=== PATIENT | male | born 1955 | race American Indian/Alaskan Native ===

== ENCOUNTER 2020-06-13 11:13 | Emergency (ER) | payer SELFPAY ==
--- NOTE | 2020-06-13 12:31 | Emergency Department Report ---
Blank Doc - Documentation Documentation: 64-year-old male that presents with generlized body aches and weakness. This initial assessment/diagnostic orders/clinical plan/treatment(s) is/are subject to change based on patient's health status, clinical progression and re- assessment by fellow clinical providers in the ED. Further treatment and workup at subsequent clinical providers discretion. Patient/guardians urged not to elope from the ED as their condition may be serious if not clinically assessed and managed. Initial orders include: 1- Patient sent to MAIN ED for further evaluation and treatment 2- EKG 3- labs 4- UA
--- NOTE | 2020-06-13 13:21 | XRay Report ---
CHEST 2 VIEWS INDICATION / CLINICAL INFORMATION: Chest Pain. COMPARISON: None available. FINDINGS: SUPPORT DEVICES: None. HEART / MEDIASTINUM: No significant abnormality. LUNGS / PLEURA: There is hazy patchy opacification in the left lower lung. No pneumothorax. ADDITIONAL FINDINGS: No significant additional findings. IMPRESSION: 1. Hazy patchy opacification in the left lower lung that could reflect developing infectious process. Signer Name: John Espinal MD Signed: 06/13/2020 1:17 PM Workstation Name: [id number]
[2020-06-13 14:28] LABS: Basophils % (Auto) 0.2 % (0.0-1.8); Hematocrit 35.8 % (35.5-45.6); Hemoglobin 12.4 gm/dl (11.8-15.2); Lymphocytes # (Auto) 0.8 K/mm3 (1.2-5.4); Lymphocytes % (Auto) 14.9 % (13.4-35.0); Mean Corpuscular HGB Conc 35 % (32-34); Mean Corpuscular Volume 86 fl (84-94); Monocytes # (Auto) 0.5 K/mm3 (0.0-0.8); Monocytes % (Auto) 10.8 % (0.0-7.3); Platelet Count 229 K/mm3 (140-440); Red Blood Count 4.15 M/mm3 (3.65-5.03); Red Cell Distribution Width 18.9 % (13.2-15.2)
[2020-06-13 14:42] LABS: INR 0.96 (0.87-1.13)
[2020-06-13 14:43] LABS: Partial Thromboplastin Time 35.3 Sec. (24.2-36.6)
[2020-06-13 14:55] LABS: Alanine Aminotransferase 31 units/L (7-56); Albumin 3.7 g/dL (3.9-5); BUN/Creatinine Ratio 11; Blood Urea Nitrogen 11 mg/dL (9-20); Calcium 8.5 mg/dL (8.4-10.2); Hemolysis Index 16
--- NOTE | 2020-06-14 01:13 | Emergency Department Report ---
ED Fever HPI - General Chief Complaint: Weakness Stated Complaint: HYPERTENSION PUI?: Yes Time Seen by Provider: 06/13/20 12:30 Source: patient Exam Limitations: no limitations - History of Present Illness Initial Comments: Mr. Loo is a 64 yo male with hx of DM, HTN who presents with generalized body aches, weakness and fever. Denies cough or shortness of breath. He was followed by a [facility] previously. Currently does not have access to medical care without health insurance. Denies cough. No known sick contacts. Timing/Duration: other (Several days) Fever Severity/Quality: subjective Associated Symptoms: muscle aches, other (Malaise) ED Review of Systems ROS: Stated complaint: HYPERTENSION Other details as noted in HPI Comment: All other systems reviewed and negative Constitutional: fever, malaise Respiratory: denies: cough, shortness of breath Gastrointestinal: denies: abdominal pain, nausea, vomiting Neurological: denies: headache ED Past Medical Hx - Past Medical History Previous Medical History?: Yes Hx Hypertension: Yes (No hx as of) Hx Diabetes: Yes Hx Dementia: Yes - Surgical History Past Surgical History?: Yes - Social History Smoking Status: Never Smoker Substance Use Type: None - Medications Home Medications: Home Medications Medication Instructions Recorded Confirmed Last Taken Type Azithromycin [Zithromax Z-SAMATNA] 250 mg PO DAILY #6 tablet 06/14/20 Unknown Rx amLODIPine 5 mg PO DAILY #90 tab 06/14/20 Unknown Rx hydroCHLOROthiazide 12.5 mg PO DAILY 90 Days #90 06/14/20 Unknown Rx [Hydrochlorothiazide] capsule metFORMIN [Glucophage] 500 mg PO BID 90 Days #180 tablet 06/14/20 Unknown Rx ED Physical Exam - General Limitations: No Limitations General appearance: alert, in no apparent distress - Head Head exam: Present: atraumatic, normocephalic - Eye Eye exam: Present: normal appearance - ENT ENT exam: Present: mucous membranes moist - Neck Neck exam: Present: normal inspection, full ROM - Respiratory Respiratory exam: Present: normal lung sounds bilaterally. Absent: respiratory distress, wheezes, rales, rhonchi - Cardiovascular Cardiovascular Exam: Present: regular rate, normal rhythm, normal heart sounds. Absent: systolic murmur, diastolic murmur, rubs, gallop - GI/Abdominal GI/Abdominal exam: Present: soft, normal bowel sounds. Absent: distended, tenderness, guarding, rebound - Rectal Rectal exam: Present: deferred - Extremities Exam Extremities exam: Present: normal inspection - Back Exam Back exam: Present: normal inspection - Neurological Exam Neurological exam: Present: alert, oriented X3 - Psychiatric Psychiatric exam: Present: normal affect, normal mood - Skin Skin exam: Present: warm, dry, intact, normal color. Absent: rash ED Course Vital Signs 06/13/20 06/13/20 06/14/20 11:26 11:36 00:05 Temperature 37 F L 98.6 F 99.7 F H Pulse Rate 98 H 107 H 94 H Respiratory 16 20 18 Rate Blood Pressure 199/106 181/104 Blood Pressure 156/93 [Left] O2 Sat by Pulse 97 94 96 Oximetry ED Medical Decision Making - Lab Data Result diagrams: 06/13/20 13:57 06/13/20 13:57 Laboratory Results - last 24 hr 06/13/20 06/13/20 06/13/20 11:50 13:57 13:57 WBC 5.1 RBC 4.15 Hgb 12.4 Hct 35.8 MCV 86 MCH 30 MCHC 35 H RDW 18.9 H Plt Count 229 Lymph % (Auto) 14.9 Blaine % (Auto) 10.8 H Eos % (Auto) 0.0 Baso % (Auto) 0.2 Lymph # 0.8 L Blaine # 0.5 Eos # 0.0 Baso # 0.0 Seg Neutrophils % 74.1 H Seg Neutrophils # 3.7 PT 12.9 INR 0.96 APTT 35.3 Sodium Potassium Chloride Carbon Dioxide Anion Gap BUN Creatinine Estimated GFR BUN/Creatinine Ratio Glucose POC Glucose 65 L Calcium Total Bilirubin AST ALT Alkaline Phosphatase Troponin T Total Protein Albumin Albumin/Globulin Ratio 06/13/20 06/13/20 06/14/20 13:57 13:57 01:20 WBC RBC Hgb Hct MCV MCH MCHC RDW Plt Count Lymph % (Auto) Blaine % (Auto) Eos % (Auto) Baso % (Auto) Lymph # Blaine # Eos # Baso # Seg Neutrophils % Seg Neutrophils # PT INR APTT Sodium 137 Potassium 4.2 Chloride 100.1 Carbon Dioxide 20 L Anion Gap 21 BUN 11 Creatinine 1.0 Estimated GFR > 60 BUN/Creatinine Ratio 11 Glucose 116 H POC Glucose 91 Calcium 8.5 Total Bilirubin 0.30 AST 47 H ALT 31 Alkaline Phosphatase 58 Troponin T < 0.010 < 0.010 Total Protein 7.9 Albumin 3.7 L Albumin/Globulin Ratio 0.9 - EKG Data -: EKG Interpreted by Me EKG shows normal: sinus rhythm, axis, intervals, QRS complexes Rate: normal - EKG Data Interpretation: nonspecific ST-T wave jf - Radiology Data Radiology results: report reviewed CHEST 2 VIEWS INDICATION / CLINICAL INFORMATION: Chest Pain. COMPARISON: None available. FINDINGS: SUPPORT DEVICES: None. HEART / MEDIASTINUM: No significant abnormality. LUNGS / PLEURA: There is hazy patchy opacification in the left lower lung. No pneumothorax. ADDITIONAL FINDINGS: No significant additional findings. IMPRESSION: 1. Hazy patchy opacification in the left lower lung that could reflect developing infectious process. - Medical Decision Making Mr. Loo presents with fever body aches generalized weakness. Chest radiograph reveals left lower lobe pneumonia. Considering current COVID-19 pandemic, I strongly suspect coronavirus infection. Prescribe azithromycin. Hypertensive urgency due to lack of access to medical care. No evidence of endorgan damage as result of untreated hypertension. I have prescribed amlodipine hydrochlorothiazide. Also prescribed metformin to address history of diabetes mellitus. He has taken this medication on previous occasion. I have provided several referrals for outpatient medicine follow-up. Labs notable for mild lymphopenia no leukocytosis normal kidney function repeat Accu-Chek 91 elevated AST Critical care attestation.: If time is entered above; I have spent that time in minutes in the direct care of this critically ill patient, excluding procedure time. ED Disposition Clinical Impression: Suspected 2019 novel coronavirus infection, Community acquired pneumonia, Hypertensive urgency, Diabetes mellitus Disposition: DC-01 TO HOME OR SELFCARE Is pt being admited?: No Does the pt Need Aspirin: No Condition: Stable Instructions: COVID-19 Additional Instructions: Please self isolate self quarantine for the next 14 days Prescriptions: amLODIPine 5 mg PO DAILY #90 tab metFORMIN [Glucophage] 500 mg PO BID 90 Days #180 tablet hydroCHLOROthiazide [Hydrochlorothiazide] 12.5 mg PO DAILY 90 Days #90 capsule Azithromycin [Zithromax Z-SAMANTA] 250 mg PO DAILY #6 tablet Referrals: ABIEL DEN[facility]KE[facility] MD FRANCISCO [Primary Care Provider] - 3-5 Days AILYN GARCIA MD [Staff Physician] - 3-5 Days
[2020-06-14 01:47] VITALS: BP 150/86
== END 2020-06-14 01:47 | disposition home or self-care (01) ==
LOC: ED 11:13
DX: J18.9 Pneumonia, unspecified organism (principal); Z20.828 Contact with and (suspected) exposure to other viral communicable diseases; I16.0 Hypertensive urgency; E11.9 Type 2 diabetes mellitus without complications; F03.90 Unspecified dementia, unspecified severity, without behavioral disturbance, psychotic disturbance, mood disturbance, and anxiety; Z79.2 Long term (current) use of antibiotics; Z79.84 Long term (current) use of oral hypoglycemic drugs; Z79.899 Other long term (current) drug therapy
CPT/HCPCS: 36415; 71046; 80053; 82962; 84484; 85025; 85610; 85730; 93005

== ENCOUNTER 2020-07-20 12:57 | Emergency (ER) | payer SELFPAY ==
--- NOTE | 2020-07-20 17:07 | Emergency Department Report ---
ED Medical Clearance HPI - General Chief complaint: Medical Clearance Stated complaint: MED REFILL Source: patient Mode of arrival: Ambulatory - History of Present Illness Initial comments: 64-year-old -[place] male presents to the emergency room requesting refills of his medications. Patient states he is coming to see his doctor. Patient was seen here last month on 06/14/2020 and was started on metformin twice a day and hydrochlorothiazide 12.5 mg with amlodipine 5 mg. Patient did not follow-up with the providers was referred to him on his discharge summary. Patient denies any chest pain shortness of breathing no dizziness no increased thirst or increased urination. MD Complaint: medical clearance request, other Home medications: Previous Rx's Medication Instructions Recorded Last Taken Type Azithromycin [Zithromax Z-SAMANTA] 250 mg PO DAILY #6 tablet 06/14/20 Unknown Rx amLODIPine 5 mg PO DAILY #90 tab 06/14/20 Unknown Rx hydroCHLOROthiazide 12.5 mg PO DAILY 90 Days #90 06/14/20 Unknown Rx [Hydrochlorothiazide] capsule metFORMIN [Glucophage] 500 mg PO BID 90 Days #180 tablet 06/14/20 Unknown Rx Allergies/Adverse reactions: Allergies Allergy/AdvReac Type Severity Reaction Status Date / Time No Known Allergies Allergy Unverified 06/14/20 01:13 ED Review of Systems ROS: Stated complaint: MED REFILL Other details as noted in HPI ED Past Medical Hx - Past Medical History Hx Hypertension: Yes (No hx as of) Hx Diabetes: Yes Hx Dementia: Yes - Social History Smoking Status: Never Smoker - Medications Home Medications: Home Medications Medication Instructions Recorded Confirmed Last Taken Type Azithromycin [Zithromax Z-SAMANTA] 250 mg PO DAILY #6 tablet 06/14/20 Unknown Rx amLODIPine 5 mg PO DAILY #90 tab 06/14/20 Unknown Rx hydroCHLOROthiazide 12.5 mg PO DAILY 90 Days #90 06/14/20 Unknown Rx [Hydrochlorothiazide] capsule metFORMIN [Glucophage] 500 mg PO BID 90 Days #180 tablet 06/14/20 Unknown Rx ED Physical Exam - General Limitations: No Limitations ED Course Vital Signs 07/20/20 13:36 Temperature 98.0 F Pulse Rate 80 Respiratory 18 Rate Blood Pressure 177/96 O2 Sat by Pulse 99 Oximetry ED Disposition Condition: Stable Referrals: [facility], [Primary Care Provider] - 3-5 Days
--- NOTE | 2020-07-20 17:11 | Emergency Department Report ---
Chief Complaint: Medical Clearance Stated Complaint: MED REFILL - HPI History of Present Illness: 64-year-old -[place] male presents to the emergency room requesting refills of his medications. Patient states he is coming to see his doctor. Patient was seen here last month on 06/14/2020 and was started on metformin twice a day and hydrochlorothiazide 12.5 mg with amlodipine 5 mg. Patient did not follow-up with the providers was referred to him on his discharge summary. Patient denies any chest pain shortness of breathing no dizziness no increased thirst or increased urination. - Exam Vital Signs: Vital Signs 07/20/20 13:36 Temperature 98.0 F Pulse Rate 80 Respiratory 18 Rate Blood Pressure 177/96 O2 Sat by Pulse 99 Oximetry Physical Exam: Gen: alert oriented NAD Cardic: regular rate and rhythm no murmurs appreciated Resp: Clear to auscultation bilateral no wheezing no rales or rhonchi. Abdomen: Soft nontender nondistended normal bowel sounds. Ambulatory without difficulties. MSE screening note: Focused history and physical exam performed. Due to findings the following was ordered: 64-year-old -[place] male presents to the emergency room requesting refills of his medications. Patient states he is coming to see his doctor. Patient was seen here last month on 06/14/2020 and was started on metformin twice a day and hydrochlorothiazide 12.5 mg with amlodipine 5 mg. Patient did not follow-up with the providers was referred to him on his discharge summary. Patient denies any chest pain shortness of breathing no dizziness no increased thirst or increased urination. Patient is referred to Dr. Salinas and or [facility]. ED Disposition for MSE Disposition: Z-07 MED SCREENING EXAM-LEFT Is pt being admited?: No Does the pt Need Aspirin: No Condition: Stable Additional Instructions: Please follow-up with one of the community providers for your chronic disease management. They are able to evaluate you and manage your diabetes and hypertension. Referrals: PRIMARY CAREMD [Primary Care Provider] - 3-5 Days AILYN GARCIA MD [Staff Physician] - 3-5 Days [facility] [Provider Group] - 3-5 Days
[2020-07-20 18:04] VITALS: BP 180/76
== END 2020-07-20 17:48 | disposition left against medical advice (07) ==
LOC: ED 12:57
DX: Z79.4 Long term (current) use of insulin (principal); Z53.21 Procedure and treatment not carried out due to patient leaving prior to being seen by health care provider